=== PATIENT | female | born 1985 | race Caucasian/White ===

== ENCOUNTER 2020-12-11 10:31 | Emergency (ER) | payer MEDICAID ==
[~2020-12-11] VITALS: Ht 165.1 cm; Wt 74.5 kg
[2020-12-11 10:48] VITALS: TEMP 98.2
[2020-12-11] MEDS ORDERED: PERCOCET 325 MG1 TA2 PO (12:33)
[2020-12-11 12:38] VITALS: BP 118/70; PULSE 80
== END 2020-12-11 12:40 | disposition home or self-care (01) ==
LOC: COL.ER 10:31
DX: G89.29 Other chronic pain (principal); M54.5 Low back pain